=== PATIENT | male | born 1975 ===

== ENCOUNTER 2018-06-20 11:03 | Day surgery (SDC) | payer OTHER ==
[2018-06-20] MEDS ORDERED: Propofol 10 mg/ml Inj (20 ML) ONE (14:53)
[2018-06-20] MEDS ORDERED: Midazolam 2 MG/2 ML VIAL ONE (14:53)
[2018-06-20] MEDS ORDERED: Lidocaine Hydrochloride 10 ML INJ ONE (14:54)
[2018-06-20] MEDS ORDERED: Bupivacaine HCl 0.5% PF (10 ml) Inj ONE (14:54)
[2018-06-20] MEDS ORDERED: Ciprofloxacin 400mg/200ml D5W 400 MG/200 ML BAG IVPB ONE (14:56)
[2018-06-20] MEDS ORDERED: Bacitracin 500 Units/gm Oint Foilpak UD ONE (15:28)
--- NOTE | 2018-06-20 15:30 | PCM.SURG1 ---
Surgeon's Initial Post Op Note - Surgeon's Notes Surgeon: [employer] Professional: DAYANA Type of Anesthesia: General LMA Anesthesia Administered By: STAFF Pre-Operative Diagnosis: NORMAL FERTILITY VOL.STERILIZATION Operative Findings: NORMAL VAS Post-Operative Diagnosis: SAME Operation Performed: BILAT. VASECTOMY Specimen/Specimens Removed: L+R VAS Estimated Blood Loss: EBL {In ML}: 0 Blood Products Given: N/A Drains Used: No Drains Post-Op Condition: Good Date of Surgery/Procedure: 06/20/18 Time of Surgery/Procedure: 15:30
[2018-06-20] MEDS ORDERED: HYDROmorphone 0.5 mg/0.5 ml ISec IVP PRN (15:36)
[2018-06-20 17:43] VITALS: PULSE 65; RESP 10; TEMP 97.2
[2018-06-20 18:01] VITALS: BP 123/76; O2SAT 98
--- NOTE | 2018-06-21 02:19 | OP ---
PROCEDURE DATE: 06/20/2018 PREOPERATIVE DIAGNOSIS: Normal fertility, voluntary sterilization. POSTOPERATIVE DIAGNOSIS: Normal fertility voluntary sterilization. PROCEDURE: Bilateral vasectomy. DESCRIPTION OF PROCEDURE: The procedure is as follows. Prior to the procedure, a detailed informed consent was obtained from the patient. He is aware of the risks and complications of this procedure including failure causing infertility and he is aware that vasectomy reversal and return to normal fertility may be impossible in the future. He consented to the procedure, is wiling to accept the risk, and was brought into the room, draped and prepped in the usual manner. Time-out was taken according to the rules and regulations of [facility] and three-finger method was used to grasp the right vas. A 1 inch incision was then made over the vas after infiltrating with 8% Marcaine and Xylocaine solution and carried down to the subcutaneous tissues. The vas was grasped with an Allis clamp and exteriorized. The vas sheath was opened and a 1.5 cm segment of vas was removed. Each end was fulgurated with a Bovie. The proximal end was tied within the sheath which was closed with 3-0 Prolene suture. The distal end was tucked outside the sheath and tied with 3-0 Prolene suture. The patient tolerated the procedure well. The skin was closed with 3-0 chromic suture in a discontinuous fashion. The procedure was then repeated on the opposite side. Liang Kilpatrick MD
== END 2018-06-20 18:03 | disposition home or self-care (01) ==
LOC: C.SDS 11:03
PROVIDERS: ATTEND Urology
DX: Z30.2 Encounter for sterilization (principal)
CPT/HCPCS: 55250; 88302; J0744; J2250; J2704; J3010